=== PATIENT | female | born 1980 | race Caucasian/White ===

== ENCOUNTER 2016-11-15 12:16 | Emergency (ER) | payer OTHER ==
[~2016-11-15] VITALS: Ht 165.1 cm; Wt 120.2 kg
[~2016-11-15 12:16] MED LIST: DULERA 100 MCG/13 GM IH; PHENERGAN1.25 MG/ML PO; SINGULAIR10 MG PO; UNISOM50 MG PO; VALTREX50 MG/ML PO; ZITHROMAX Z-PA250 MG PO
[2016-11-15 13:15] LABS: HEMATOCRIT 41.5 % (36.0-46.0); MCH 28.6 PG (29.0-34.0); MCHC 34.2 G/DL (30.0-36.0); MCV 83.5 FL (83-99); PLATELET COUNT 275 K/uL (156-360); RBC DIS.WIDTH-CV 13.1 % (11.8-14.6); RBC DIS.WIDTH-SD 39.2 % (39-53); RED BLOOD COUNT 4.97 M/uL (3.80-5.20); WHITE BLOOD COUNT 7.2 K/uL (4.1-10.2)
[2016-11-15 13:25] LABS: CHLORIDE 105 mEq/L (99-109); POTASSIUM 3.1 mEq/L (3.7-5.4); SODIUM 139 mEq/L (136-147)
[2016-11-15 13:27] LABS: GLUCOSE 103 mg/dL (70-99)
[2016-11-15 13:29] LABS: ANION GAP 11 MEQ/L (2-14); TOTAL BILIRUBIN 0.5 mg/dL (0.0-1.0)
[2016-11-15 13:31] LABS: ALKALINE PHOSPHATASE 66 IU/L (3-129); GFR ESTIMATE (CALCULATED) > 59 mL/min/
[2016-11-15 13:32] LABS: UREA NITROGEN (BUN) 17 mg/dL (9-23)
[2016-11-15 13:41] LABS: QUANTITATIVE HCG < 4.0 MIU/ML
[2016-11-15] MEDS ORDERED: ALPRAZOLAM0.5 MG PO (13:43)
[2016-11-15] MEDS ORDERED: DULOXETINE HCL60 MG PO (13:44)
[2016-11-15] MEDS ORDERED: NYQUIL PO (13:46)
[2016-11-15] MEDS ORDERED: DAY QUIL PO (13:47)
[2016-11-15 14:03] LABS: LIPASE 17 U/L (1.0-51.0)
[2016-11-15 15:11] LABS: INFLUENZA A VIRAL ANTIGEN NEGATIVE; INFLUENZA B VIRAL ANTIGEN NEGATIVE
[2016-11-15 15:46] LABS: ADD MIUA? YES; BILIRUBIN NEGATIVE; BLOOD NEGATIVE; COLOR YELLOW ((YELLOW)); GLUCOSE (STRIP) NEGATIVE; KETONES 5; LEUKOCYTES NEGATIVE; NITRITE NEGATIVE; PROTEIN (STRIP) NEGATIVE; SPECIFIC GRAVITY 1.028 (1.000-1.030); UROBILINOGEN 0.2 MG/DL (0.2-1.0)
[2016-11-15 15:51] LABS: BACTERIA RARE /HPF; EPITHELIAL CELLS RARE /HPF; MUCUS TRACE /LPF; RED BLOOD CELLS 0-5 /HPF (0-5); UCUL ADDED? NO; WHITE BLOOD CELLS 0-5 /HPF (0-5)
[2016-11-15] MEDS ORDERED: MOTRIN600 MG PO (16:11)
[2016-11-15] MEDS ORDERED: ZOFRAN ODT8 MG PO (16:11)
[2016-11-15] MEDS ORDERED: LORTAB 5-325 M1 EACH PO (16:11)
[2016-11-15 16:46] VITALS: BP 103/67
== END 2016-11-15 16:50 | disposition home or self-care (01) ==
LOC: EME 12:16
PROVIDERS: Emergency Medicine
DX: B34.9 Viral infection, unspecified (principal); R11.2 Nausea with vomiting, unspecified; Z88.1 Allergy status to other antibiotic agents; Z88.0 Allergy status to penicillin
CPT/HCPCS: 74020; 80053; 81003; 83690; 84702; 85027; 87502; 99281; 99285; J1885; J2405; J7030

== ENCOUNTER 2017-02-16 18:34 | Emergency (ER) | payer OTHER ==
[~2017-02-16] VITALS: Ht 165.1 cm; Wt 128.0 kg
[~2017-02-16 18:34] MED LIST changes: +ALPRAZOLAM0.5 MG PO; +DAY QUIL PO; +DULOXETINE HCL60 MG PO; +LORTAB 5-325 M1 EACH PO; +MOTRIN600 MG PO; +NYQUIL PO; +ZOFRAN ODT8 MG PO
[2017-02-16] MEDS ORDERED: FAMOTIDINE40 MG PO (19:22)
[2017-02-16] MEDS ORDERED: PANTOPRAZOLE SO40 MG PO (19:22)
[2017-02-16] MEDS ORDERED: GABAPENTIN100 MG PO (19:22)
[2017-02-16] MEDS ORDERED: ALPRAZOLAM0.25 M2 PO (19:23)
[2017-02-16] MEDS ORDERED: MELOXICAM7.5 MG PO (19:23)
[2017-02-16 20:07] LABS: HEMATOCRIT 39.2 % (36.0-46.0); MCH 28.7 PG (29.0-34.0); MCHC 33.7 G/DL (30.0-36.0); MCV 85.2 FL (83-99); MEAN PLAT.VOLUME 10.2 uM^3 (9.5-12.4); PLATELET COUNT 303 K/uL (156-360); RBC DIS.WIDTH-CV 13.4 % (11.8-14.6); RBC DIS.WIDTH-SD 41.5 % (39-53); WHITE BLOOD COUNT 13.6 K/uL (4.1-10.2)
[2017-02-16 20:17] LABS: CHLORIDE 108 mEq/L (99-109); POTASSIUM 3.9 mEq/L (3.7-5.4); SODIUM 139 mEq/L (136-147)
[2017-02-16 20:19] LABS: GLUCOSE 94 mg/dL (70-99)
[2017-02-16 20:21] LABS: ANION GAP 10 MEQ/L (2-14)
[2017-02-16 20:23] LABS: GFR ESTIMATE (CALCULATED) > 59 mL/min/
[2017-02-16 20:23] LABS: ADD MIUA? YES; BILIRUBIN NEGATIVE; BLOOD NEGATIVE; COLOR YELLOW ((YELLOW)); GLUCOSE (STRIP) NEGATIVE; KETONES NEGATIVE; LEUKOCYTES NEGATIVE; NITRITE NEGATIVE; PROTEIN (STRIP) NEGATIVE; SPECIFIC GRAVITY 1.025 (1.000-1.030); UROBILINOGEN 0.2 MG/DL (0.2-1.0)
[2017-02-16 20:24] LABS: UREA NITROGEN (BUN) 19 mg/dL (9-23)
[2017-02-16 20:25] LABS: CREATINE KINASE 70 IU/L (1-294)
[2017-02-16 20:26] LABS: BACTERIA NONE SEEN /HPF; EPITHELIAL CELLS 1+ /HPF; MUCUS TRACE /LPF; RED BLOOD CELLS 0-5 /HPF (0-5); WHITE BLOOD CELLS 0-5 /HPF (0-5)
[2017-02-16 20:32] LABS: QUANTITATIVE HCG < 4.0 MIU/ML
[2017-02-16] MEDS ORDERED: PREDNISONE20 MG PO (21:25)
[2017-02-16] MEDS ORDERED: MUCINEX D ER T1 EACH PO (21:25)
[2017-02-16] MEDS ORDERED: VENTOLIN HFA18 GM IH (21:25)
[2017-02-16] MEDS ORDERED: FLONASE16 G1 BOTH NARES (21:25)
[2017-02-16] MEDS ORDERED: ANTIVERT25 MG PO (21:26)
[2017-02-16 21:33] VITALS: BP 117/78
== END 2017-02-16 21:48 | disposition home or self-care (01) ==
LOC: EME 18:34
PROVIDERS: Physician Assistant
DX: J06.9 Acute upper respiratory infection, unspecified (principal); J20.9 Acute bronchitis, unspecified; M94.0 Chondrocostal junction syndrome [Tietze]; H65.93 Unspecified nonsuppurative otitis media, bilateral; R42 Dizziness and giddiness; M25.569 Pain in unspecified knee; Z87.891 Personal history of nicotine dependence
CPT/HCPCS: 71020; 80048; 81003; 82550; 84702; 85027; 94640; 99281; 99283; J7512

== ENCOUNTER 2017-03-27 16:46 | Emergency (ER) | payer OTHER ==
[~2017-03-27] VITALS: Ht 162.6 cm; Wt 127.4 kg
[~2017-03-27 16:46] MED LIST changes: +ALPRAZOLAM0.25 M2 PO; +ANTIVERT25 MG PO; +FAMOTIDINE40 MG PO; +FLONASE16 G1 BOTH NARES; +GABAPENTIN100 MG PO; +MELOXICAM7.5 MG PO; +MUCINEX D ER T1 EACH PO; +PANTOPRAZOLE SO40 MG PO; +PREDNISONE20 MG PO; +VENTOLIN HFA18 GM IH
[2017-03-27 18:08] LABS: HEMATOCRIT 42.1 % (36.0-46.0); MCH 28.4 PG (29.0-34.0); MCHC 33.3 G/DL (30.0-36.0); MCV 85.4 FL (83-99); MEAN PLAT.VOLUME 10.2 uM^3 (9.5-12.4); PLATELET COUNT 313 K/uL (156-360); RBC DIS.WIDTH-CV 13.1 % (11.8-14.6); RBC DIS.WIDTH-SD 40.6 % (39-53); RED BLOOD COUNT 4.93 M/uL (3.80-5.20)
[2017-03-27 18:17] LABS: CHLORIDE 106 mEq/L (99-109); POTASSIUM 3.8 mEq/L (3.7-5.4); SODIUM 141 mEq/L (136-147)
[2017-03-27 18:20] LABS: GLUCOSE 94 mg/dL (70-99)
[2017-03-27 18:21] LABS: ANION GAP 9 MEQ/L (2-14)
[2017-03-27 18:22] LABS: TOTAL BILIRUBIN 0.5 mg/dL (0.0-1.0)
[2017-03-27 18:23] LABS: ALKALINE PHOSPHATASE 71 IU/L (3-129); GFR ESTIMATE (CALCULATED) > 59 mL/min/
[2017-03-27 18:24] LABS: UREA NITROGEN (BUN) 17 mg/dL (9-23)
[2017-03-27 18:27] LABS: LIPASE 21 U/L (1.0-51.0)
[2017-03-27 18:33] LABS: QUANTITATIVE HCG < 4.0 MIU/ML
[2017-03-27] MEDS ORDERED: GABAPENTIN300 MG PO (21:42)
[2017-03-27 21:55] LABS: TROP-I INTERPRETATION NEGATIVE; TROPONIN-I < 0.01 ng/mL (0.0-0.30)
[2017-03-27] MEDS ORDERED: FIORICET 50-301 EACH PO (22:25)
[2017-03-27] MEDS ORDERED: ZOFRAN4 MG PO (22:25)
[2017-03-27 23:35] VITALS: BP 133/57
== END 2017-03-27 23:52 | disposition home or self-care (01) ==
LOC: EME 16:46
DX: G43.909 Migraine, unspecified, not intractable, without status migrainosus (principal); R11.2 Nausea with vomiting, unspecified; K21.9 Gastro-esophageal reflux disease without esophagitis; Z87.891 Personal history of nicotine dependence
CPT/HCPCS: 80053; 81003; 83690; 84484; 84702; 85027; 93005; 99281; 99285; J1885; Q0169

== ENCOUNTER 2017-03-29 21:14 | Emergency (ER) | payer OTHER ==
[~2017-03-29] VITALS: Ht 165.1 cm; Wt 127.1 kg
[~2017-03-29 21:14] MED LIST changes: +FIORICET 50-301 EACH PO; +GABAPENTIN300 MG PO; +ZOFRAN4 MG PO
[2017-03-30 01:37] LABS: HEMATOCRIT 38.9 % (36.0-46.0); MCH 29.2 PG (29.0-34.0); MCHC 33.7 G/DL (30.0-36.0); MCV 86.8 FL (83-99); MEAN PLAT.VOLUME 9.6 uM^3 (9.5-12.4); PLATELET COUNT 280 K/uL (156-360); RBC DIS.WIDTH-SD 41.3 % (39-53); RED BLOOD COUNT 4.48 M/uL (3.80-5.20); WHITE BLOOD COUNT 13.1 K/uL (4.1-10.2)
[2017-03-30 01:48] LABS: CHLORIDE 108 mEq/L (99-109); POTASSIUM 3.9 mEq/L (3.7-5.4); SODIUM 140 mEq/L (136-147)
[2017-03-30 01:51] LABS: GLUCOSE 103 mg/dL (70-99)
[2017-03-30 01:52] LABS: ANION GAP 8 MEQ/L (2-14)
[2017-03-30 01:53] LABS: TOTAL BILIRUBIN 0.5 mg/dL (0.0-1.0)
[2017-03-30 01:54] LABS: ALKALINE PHOSPHATASE 61 IU/L (3-129); GFR ESTIMATE (CALCULATED) > 59 mL/min/
[2017-03-30 01:55] LABS: UREA NITROGEN (BUN) 15 mg/dL (9-23)
[2017-03-30 02:06] LABS: QUANTITATIVE HCG < 4.0 MIU/ML
[2017-03-30] MEDS ORDERED: MAXALT5 MG PO (02:48)
[2017-03-30 03:20] VITALS: BP 104/62
== END 2017-03-30 03:21 | disposition home or self-care (01) ==
LOC: EME 21:14
DX: R51 Headache (principal); D72.829 Elevated white blood cell count, unspecified; Z87.891 Personal history of nicotine dependence; I47.1 Supraventricular tachycardia; K21.9 Gastro-esophageal reflux disease without esophagitis
CPT/HCPCS: 80053; 81003; 84702; 85027; 99281; 99285; J0780; J1100; J1200; J1885; J7030

== ENCOUNTER 2017-03-31 21:09 | Emergency (ER) | payer OTHER ==
[~2017-03-31] VITALS: Ht 165.1 cm; Wt 130.5 kg
[~2017-03-31 21:09] MED LIST changes: +MAXALT5 MG PO
[2017-04-01] MEDS ORDERED: TOPAMAX25 MG PO (01:30)
[2017-04-01 01:58] VITALS: BP 113/61
== END 2017-04-01 02:01 | disposition home or self-care (01) ==
LOC: EME 21:09
DX: G43.909 Migraine, unspecified, not intractable, without status migrainosus (principal); T50.995A Adverse effect of other drugs, medicaments and biological substances, initial encounter; R20.0 Anesthesia of skin; K21.9 Gastro-esophageal reflux disease without esophagitis; J45.909 Unspecified asthma, uncomplicated; R56.9 Unspecified convulsions; Z87.891 Personal history of nicotine dependence
CPT/HCPCS: 70450; 99281; 99284

== ENCOUNTER 2017-06-21 14:47 | Emergency (ER) | payer OTHER ==
[~2017-06-21] VITALS: Ht 165.1 cm; Wt 132.0 kg
[~2017-06-21 14:47] MED LIST changes: +TOPAMAX25 MG PO
[2017-06-21 15:54] LABS: HEMATOCRIT 37.9 % (36.0-46.0); MCH 28.7 PG (29.0-34.0); MCHC 33.8 G/DL (30.0-36.0); MEAN PLAT.VOLUME 10.3 uM^3 (9.5-12.4); PLATELET COUNT 281 K/uL (156-360); RED BLOOD COUNT 4.46 M/uL (3.80-5.20); WHITE BLOOD COUNT 11.9 K/uL (4.1-10.2)
[2017-06-21 16:02] LABS: CHLORIDE 105 mEq/L (99-109); D-DIMER ELISA < 150.00 ng/mLDDU (<230); POTASSIUM 3.7 mEq/L (3.7-5.4); SODIUM 139 mEq/L (136-147)
[2017-06-21 16:04] LABS: GLUCOSE 103 mg/dL (70-99)
[2017-06-21 16:06] LABS: ANION GAP 14 MEQ/L (2-14); TOTAL BILIRUBIN 0.4 mg/dL (0.0-1.0)
[2017-06-21 16:08] LABS: ALKALINE PHOSPHATASE 72 IU/L (3-129); GFR ESTIMATE (CALCULATED) > 59 mL/min/
[2017-06-21 16:09] LABS: UREA NITROGEN (BUN) 12 mg/dL (9-23)
[2017-06-21 16:10] LABS: DIRECT BILIRUBIN 0.2 mg/dL (0.0-0.3)
[2017-06-21 16:11] LABS: LIPASE 39 U/L (1.0-51.0)
[2017-06-21 16:14] LABS: TROP-I INTERPRETATION NEGATIVE; TROPONIN-I < 0.01 ng/mL (0.0-0.30)
[2017-06-21 17:53] LABS: TROP-I INTERPRETATION NEGATIVE; TROPONIN-I < 0.01 ng/mL (0.0-0.30)
[2017-06-21] MEDS ORDERED: ZITHROMAX Z-PA250 MG PO (18:31)
[2017-06-21 18:51] VITALS: BP 132/79
== END 2017-06-21 18:52 | disposition home or self-care (01) ==
LOC: EME 14:47
PROVIDERS: Emergency Medicine
DX: R07.9 Chest pain, unspecified (principal); R05 Cough; K21.9 Gastro-esophageal reflux disease without esophagitis; J45.909 Unspecified asthma, uncomplicated; G43.909 Migraine, unspecified, not intractable, without status migrainosus; F41.9 Anxiety disorder, unspecified; J30.9 Allergic rhinitis, unspecified; Z88.0 Allergy status to penicillin; Z88.8 Allergy status to other drugs, medicaments and biological substances; Z87.891 Personal history of nicotine dependence
CPT/HCPCS: 71020; 80048; 80076; 83690; 83880; 84484; 85027; 85379; 93005; 99281; 99284

== ENCOUNTER 2018-02-27 16:19 | Emergency (ER) | payer OTHER ==
[~2018-02-27] VITALS: Ht 165.1 cm; Wt 131.8 kg
[2018-02-27 17:18] LABS: HEMATOCRIT 36.7 % (36.0-46.0); HEMOGLOBIN 12.4 G/DL (11.9-15.5); MCH 28.7 PG (29.0-34.0); MCHC 33.8 G/DL (30.0-36.0); PLATELET COUNT 262 K/uL (156-360); RBC DIS.WIDTH-CV 13.9 % (11.8-14.6); RBC DIS.WIDTH-SD 43.5 % (39-53); RED BLOOD COUNT 4.32 M/uL (3.80-5.20); WHITE BLOOD COUNT 10.3 K/uL (4.1-10.2)
[2018-02-27 17:30] LABS: ALBUMIN 3.8 g/dL (3.2-4.8); CHLORIDE 105 mEq/L (99-109); POTASSIUM 3.9 mEq/L (3.7-5.4); SODIUM 139 mEq/L (136-147)
[2018-02-27 17:33] LABS: GLUCOSE 97 mg/dL (70-99); TOTAL PROTEIN 6.8 g/dL (6.4-8.3)
[2018-02-27 17:35] LABS: TOTAL BILIRUBIN 0.4 mg/dL (0.0-1.0)
[2018-02-27 17:36] LABS: ALKALINE PHOSPHATASE 87 IU/L (3-129); CREATININE 0.7 mg/dL (0.6-1.3); GFR ESTIMATE (CALCULATED) > 59 mL/min/
[2018-02-27 17:37] LABS: UREA NITROGEN (BUN) 9 mg/dL (9-23)
[2018-02-27 17:38] LABS: AST (GOT) 72 IU/L (2-34)
[2018-02-27 17:39] LABS: ALT (GPT) 38 IU/L (3-49)
[2018-02-27 17:40] LABS: LIPASE 32 U/L (1.0-51.0)
[2018-02-27 18:05] LABS: QUANTITATIVE HCG 47347.3 MIU/ML
[2018-02-27 18:11] LABS: APPEARANCE CLOUDY ((CLEAR)); BILIRUBIN NEGATIVE; BLOOD NEGATIVE; COLOR YELLOW ((YELLOW)); GLUCOSE (STRIP) NEGATIVE; KETONES NEGATIVE; LEUKOCYTES NEGATIVE; NITRITE NEGATIVE; PROTEIN (STRIP) NEGATIVE; SPECIFIC GRAVITY 1.028 (1.000-1.030)
[2018-02-27] MEDS ORDERED: ZOFRAN4 MG PO (18:20)
[2018-02-27 18:26] LABS: BACTERIA RARE /HPF; EPITHELIAL CELLS RARE /HPF; HYALINE CASTS 0-5 /LPF; MUCUS 1+ /LPF; RED BLOOD CELLS 0-5 /HPF (0-5); UCUL ADDED? NO; WHITE BLOOD CELLS 0-5 /HPF (0-5)
[2018-02-27 19:50] VITALS: BP 101/76
== END 2018-02-27 19:50 | disposition home or self-care (01) ==
LOC: EME 16:19
PROVIDERS: Physician Assistant
DX: O26.891 Other specified pregnancy related conditions, first trimester (principal); R10.9 Unspecified abdominal pain; Z3A.10 10 weeks gestation of pregnancy; H91.90 Unspecified hearing loss, unspecified ear; O99.511 Diseases of the respiratory system complicating pregnancy, first trimester; J45.909 Unspecified asthma, uncomplicated; O99.611 Diseases of the digestive system complicating pregnancy, first trimester; K21.9 Gastro-esophageal reflux disease without esophagitis; O99.341 Other mental disorders complicating pregnancy, first trimester; F41.9 Anxiety disorder, unspecified; Z87.891 Personal history of nicotine dependence; Z88.0 Allergy status to penicillin; Z88.1 Allergy status to other antibiotic agents; Z88.8 Allergy status to other drugs, medicaments and biological substances
CPT/HCPCS: 76801; 80053; 81003; 83690; 84702; 85027; 93005; 99281; 99284; J3010